=== PATIENT | female | born 1955 | race African-American/Black ===

== ENCOUNTER → 2020-12-22 | Outpatient (CLI) | payer MEDICARE, MEDICAID | END | disposition home or self-care (01) | LOC: CARD 09:45 | PROVIDERS: ATTEND Internal Medicine | DX: I31.3 Pericardial effusion (noninflammatory) (principal); I10 Essential (primary) hypertension; R06.00 Dyspnea, unspecified | CPT/HCPCS: 93306 ==

== ENCOUNTER → 2021-01-23 | Outpatient (CLI) | payer MEDICARE, MEDICAID ==
[~2021-01-23] MED LIST: ACET-2708 PO; ASPI-1497 PO; CALC-1139 PO; CHLO25TA2 PO; CHOL100046 PO; CYCL5TAB PO; HYDR25TA PO; SIMV10TA97 PO
== END | disposition home or self-care (01) ==
LOC: LAB 08:59
PROVIDERS: ATTEND Ophthalmology
DX: Z01.812 Encounter for preprocedural laboratory examination (principal); Z20.822 Contact with and (suspected) exposure to COVID-19
CPT/HCPCS: 87426

== ENCOUNTER 2021-01-24 06:40 | Day surgery (SDC) | payer MEDICARE, MEDICAID ==
[~2021-01-24] VITALS: Ht 160 cm; Wt 83.0 kg
[~2021-01-24 06:40] MED LIST changes: +LACTATED RINGERS 1,000 ML IV SCH
[2021-01-24] MEDS ORDERED: HYDROMORPHONE HCL/PF 2MG/ML CPJ IV PRN (08:00)
[2021-01-24] MEDS ORDERED: ONDANSETRON HCL 4MG/2ML INJ IV PRN (08:00)
[2021-01-24] MEDS ORDERED: LABETALOL 5MG/ML SYR 20 MG/4 ML SYRINGE IV PRN (08:00)
[2021-01-24] MEDS ORDERED: MEPERIDINE HCL/PF 25MG/ML CPJ IV PRN (08:00)
[2021-01-24] MEDS ORDERED: BALANCED SALT IRRIG SOLN 15ML ONE (09:56)
[2021-01-24] MEDS ORDERED: PREDNISOLONE ACETATE 1% OPHTH DROPS 5ML ONE (09:56)
[2021-01-24] MEDS ORDERED: CIPROFLOXACIN 0.3% OPHTH SOLN 2.5ML ONE (09:56)
[2021-01-24] MEDS ORDERED: BUPIVACAINE HCL/PF 0.75% (7.5MG/ML) 10ML ONE (09:56)
[2021-01-24] MEDS ORDERED: NEO/POLYMYX B SULF/DEXAMETH OPHTH OINT 3.5GM ONE (09:56)
[2021-01-24] MEDS ORDERED: LIDOCAINE HCL 2%/EPINEPHRINE 1:100,000 20 ML VIAL INFIL ONE (09:56)
[2021-01-24] MEDS ORDERED: TETRACAINE 0.5% OPHTH DROPS 4ML ONE (09:56)
== END 2021-01-24 10:45 | disposition home or self-care (01) ==
LOC: OR 06:40
PROVIDERS: ATTEND Ophthalmology
DX: H11.001 Unspecified pterygium of right eye (principal); I10 Essential (primary) hypertension; E78.00 Pure hypercholesterolemia, unspecified; M19.90 Unspecified osteoarthritis, unspecified site; D64.9 Anemia, unspecified; Z79.82 Long term (current) use of aspirin; Z79.899 Other long term (current) drug therapy; Z98.890 Other specified postprocedural states
CPT/HCPCS: 65426; 93005; J1100; J2250; J2405; J2704; J3010; J3301; J3490

== ENCOUNTER 2022-05-28 16:34 | Emergency (ER) | payer MEDICARE, OTHER ==
[~2022-05-28] VITALS: Ht 160 cm; Wt 82.0 kg
[~2022-05-28 16:34] MED LIST changes: -LACTATED RINGERS 1,000 ML IV SCH
[2022-05-28] MEDS ORDERED: ASPIRIN 325MG EC TABLET PO ONE (17:00)
[2022-05-28] MEDS ORDERED: NITROGLYCERIN 0.4MG TABLET SL SL PRN (17:00)
[2022-05-28 20:25] LABS: EOSINOPHILS % 2.2 % (0.0-5.0); HEMATOCRIT. 40.7 % (36.0-48.0); HEMOGLOBIN. 13.5 g/dL (12.0-16.0); LYMPHOCYTES % 37.6 % (20.0-50.0); MEAN CORPUSCULAR HEMOGLOBIN 27.5 pg (28.0-32.0); MEAN CORPUSCULAR VOLUME 83.2 fL (81.0-99.0); MEAN PLATELET VOLUME 8.1 fl (7.4-10.4); MONOCYTES % 8.8 % (2.0-8.0); NEUTROPHILS % 50.4 % (40.0-76.0); PLATELET 337 x1000/uL (130-400); RED CELL DISTRIBUTION WIDTH 15.2 % (11.6-14.6)
[2022-05-28 20:34] LABS: CHLORIDE 101 mEq/L (98-107)
[2022-05-28 21:18] VITALS: BP 139/95
[2022-05-28] MEDS: ASPIRIN 325MG EC TABLET PO NR (21:18)
== END 2022-05-28 22:37 | disposition home or self-care (01) ==
LOC: ER 16:34
DX: R07.89 Other chest pain (principal); M79.602 Pain in left arm; R79.89 Other specified abnormal findings of blood chemistry; I10 Essential (primary) hypertension
CPT/HCPCS: 36415; 71045; 80053; 83880; 84484; 85025; 93005; 99285